=== PATIENT | female | born 1990 ===

== ENCOUNTER 2025-07-20 02:59 | Emergency (ER) | payer BC, SELFPAY ==
[2025-07-20 02:59] VITALS: BP 103/75; PULSE 60; RESP 16; TEMP 36.4; O2SAT 96
--- NOTE | 2025-07-20 03:10 | ED_ITS ---
HPI - Wound/Laceration General Chief Complaint: Wound/Laceration Stated Complaint: Laceration Time Seen by Provider: 07/20/25 03:09 Source: patient Mode of arrival: ambulatory Limitations: no limitations History of Present Illness HPI narrative: PATIENT WAS SITTING ON THE TOILET, SEVERE MENSTRUAL CRAMPS, FELL FORWARD HIT THE FOREHEAD AGAINST SOMETHING IN THE BATHROOM CAUSING FOREHEAD LACERATION, LOSS OF CONSCIOUSNESS FOR FEW SECONDS,. PRIOR TO ARRIVAL. CURRENTLY PATIENT STILL COMPLAINING OF SEVERE MENSTRUAL CRAMPS. SHE DENIES ANY NECK PAIN OR HEADACHE. Related Data Allergies Allergy/AdvReac Type Severity Reaction Status Date / Time No Known Allergies Allergy Verified 07/20/25 03:14 Review of Systems Review of Systems: All systems reviewed & are unremarkable except as noted in HPI and below Exam Narrative: GENERAL APPEARANCE: WELL-DEVELOPED, WELL-NOURISHED SKIN: NORMAL COLOR HEAD: NORMOCEPHALIC, 6 CM LACERATION ALONG THE FOR HEAD, SUBCUTANEOUS, NO ACTIVE BLEEDING EYES: CLEAR CONJUNCTIVA ENT: OROPHARYNX NORMAL, EARS NORMAL, NOSE NORMAL NECK: SUPPLE, NONTENDER CHEST AND RESPIRATORY: AIRWAY PATENT, NO RESPIRATORY DISTRESS, NO ACCESSORY MUSCLE USE HEART: REGULAR RATE/RHYTHM ABDOMEN: SOFT, NONTENDER, NO ORGANOMEGALY, QUIET BOWEL SOUNDS VASCULAR: NORMAL PERIPHERAL PULSES, NORMAL CAPILLARY REFILL. MUSCULOSKELETAL: NORMAL RANGE OF MOTION, NONTENDER BACK NEUROLOGIC: ALERT AND ORIENTED ?3, MANAGER DOMESTIC IS NORMAL TESTED, NO GROSS MOTOR DEFICIT Course Vital Signs Vital signs: Vital Signs Temperature 36.4 C 07/20/25 02:59 Pulse Rate 60 07/20/25 02:59 Respiratory Rate 16 07/20/25 02:59 Blood Pressure 103/75 07/20/25 02:59 Pulse Oximetry 96 07/20/25 02:59 Oxygen Delivery Room Air 07/20/25 02:59 Temperature 36.4 C 07/20/25 02:59 Pulse Rate 60 07/20/25 02:59 Respiratory Rate 16 07/20/25 02:59 Blood Pressure 103/75 07/20/25 02:59 Pulse Oximetry 96 07/20/25 02:59 Oxygen Delivery Room Air 07/20/25 02:59 Procedures Laceration Laceration 1: Date: 07/20/25 Time: 04:00 Site: face and other (FOREHEAD) Size (cm): 6 Description: linear Depth: simple, single layer Local Anesthetic: lidocaine 1% and with epi Amount of anesthesia used (mL): 6 Pre-repair: wound explored, irrigated, irrigated extensively and deep structures intact ====== Skin Level ====== Skin layer closed with: nylon Size (cm): 5-0 Number of sutures: 12 Technique: simple, interrupted ====== Subcutaneous Layer ====== ====== Muscle Layer ====== ====== Tendon Layer ====== Discharge Plan Discharge Clinical Impression: Forehead laceration, Syncope, vasovagal Patient Disposition: Home Condition: Improved Instructions: Antibiotic Form, Syncope in Older Adults (ED), Head Laceration (ED) Additional Instructions: RETURN IF SYMPTOMS ARE WORSENING , CALL YOUR FAMILY PHYSICIAN FOR APPOINTMENT, TAKE TYLENOL, IBUPROFEN NEEDED FOR ACHES AND PAIN, CONTINUE HOME MEDICATIONS. REMOVE SUTURES IN 5 DAYS Patient Language: Bhutanese Prescriptions: New cephalexin 500 mg capsule 500 mg PO Q6H 7 Days Qty: 28 0RF Follow-up/Referrals: Gayla Sher MD [Physician, Plastic Surgery] - 07/22/25 UNKNOWN,DOCTOR [Primary Care Provider] Stand Alone Forms: Work/School Release IP
[2025-07-20] MEDS: TETANUS,DIPHTHERIA,AC PERTUSSIS ADULT 0.5 ML (ADACEL) IM (03:24)
[2025-07-20] MEDS: KETOROLAC (*BKC) 60 MG/2 ML VIAL IM (03:25)
[2025-07-20] MEDS: HYDROcodone/acetaminophen (*CRX) 5-325 MG TABLET 1 TAB PO (03:27)
[2025-07-20] MEDS: LIDO 1%/EPINEPHRINE 1:100,000 20 ML VIAL 10 ML INFILTRATE (03:46)
[2025-07-20] MEDS: NEOMYCIN/POLYMYXIN/BACITRACIN OINTMENT 15 GM TUBE 1 APPLIC TOPICAL (04:07)
[2025-07-20] MEDS: CEPHALEXIN 500 MG CAPSULE PO (04:37)
[2025-07-20 04:49] VITALS: BP 127/64; PULSE 91; RESP 16; TEMP 36.6; O2SAT 99
== END 2025-07-20 04:49 | disposition home or self-care (01) ==
PROVIDERS: Emergency Provider Emergency Medicine
DX: S01.81XA Laceration without foreign body of other part of head, initial encounter (principal); R55 Syncope and collapse; Z23 Encounter for immunization; W18.39XA Other fall on same level, initial encounter
CPT/HCPCS: 12013; 90471; 90715; 96372; 99283; A9270; J1885; J2004